=== PATIENT | male | born 1995 | race Caucasian/White ===

== ENCOUNTER 2018-11-21 16:07 | Emergency (ER) | payer OTHER ==
--- NOTE | 2018-11-21 17:16 | CR ---
[id number] RAD/RAD Chest PA And Lateral EXAM: RAD Chest PA And Lateral INDICATION: SYNCOPE, BRADYCARDIA. COMPARISON: None. DISCUSSION: Cardiomediastinal silhouette is normal in size and contour. Opacification overlying the right upper lung zone laterally may represent a infiltrate. No pneumothorax or pleural effusion. IMPRESSION: Right upper lung zone opacification may represent a pulmonary infiltrate. Follow-up imaging after appropriate therapy is recommended to ensure resolution. Henry Michel DO 11/21/18 1714 Thank you for allowing us to participate in the care of your patient.
[2018-11-21 17:17] LABS: CHLORIDE,CL 106 mmol/L (54-184); SODIUM,NA 144 mmol/L (69-191)
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
== END 2018-11-21 17:35 | disposition home or self-care (01) ==
LOC: VM.ED 16:07
DX: J18.9 Pneumonia, unspecified organism (principal); R91.8 Other nonspecific abnormal finding of lung field; F41.9 Anxiety disorder, unspecified; F32.9 Major depressive disorder, single episode, unspecified; Z79.899 Other long term (current) drug therapy
CPT/HCPCS: 36415; 71046; 80053; 84484; 85025; 85379; 86140; 93005; 99284-25